=== PATIENT | female | born 1995 | race Caucasian/White ===

== ENCOUNTER 2020-12-28 12:26 | Inpatient (IN) | payer BC ==
[2020-12-28 13:44] LABS: Creatinine,Urine Random 21.2 mg/dL; Protein/Creatinine Ratio,Urine 0.943
[2020-12-28 13:45] LABS: Amorphous Sediment,Urine Rare /hpf; Appearance,Urine Clear (Clear); Bilirubin,Urine Negative (Negative); Blood,Urine Negative (Negative); Color,Urine Light Yellow; Glucose,Urine (UA) Negative (Negative); Ketones,Urine Negative (Negative); Leukocyte Esterase,Urine Moderate (Negative); Nitrite,Urine Negative (Negative); Protein,Urine Negative (Negative); Specific Gravity,Urine 1.003 (1.001-1.035); Squamous Epithelial Cell,Urine 3 /hpf (0-4); Urobilinogen,Urine <2.0 mg/dL (<2.0); WBC,Urine 2 /hpf (0-5)
[2020-12-28 13:57] LABS: Basophils % (A) 0 %; Eosinophils # (A) 0.2 k/uL (0-0.7); Eosinophils % (A) 2 %; HCT 34.5 % (34.0-46.0); HGB 12.1 gm/dL (11.4-16.0); Lymphocytes # (A) 2.3 k/uL (1.0-4.8); Lymphocytes % (A) 20 %; MCH 29.4 pg (25.0-35.0); Mean Platelet Volume 9.3; Monocytes # (A) 0.6 k/uL (0-1.0); Monocytes % (A) 5 %; Neutrophils # (A) 7.8 k/uL (1.3-7.7); Neutrophils % (A) 71 %; Platelet Count 290 k/uL (150-450); RBC 4.11 m/uL (3.80-5.40); RDW 13.5 % (11.5-15.5)
[2020-12-28] MEDS ORDERED: CARBOPROST TROMETHAMINE 250 MCG/ML 1 ML AMP IM PRN (14:20)
[2020-12-28] MEDS ORDERED: TERBUTALINE 1 MG/ML VIAL SQ PRN (14:20)
[2020-12-28] MEDS ORDERED: OXYTOCIN 10 UNIT/ML 1 ML VIAL IM PRN (14:20)
[2020-12-28] MEDS ORDERED: LIDOCAINE 0.5% (PF) 5 MG/ML (50 ML SDV) SQ PRN (14:20)
[2020-12-28] MEDS ORDERED: METHYLERGONOVINE 0.2 MG/ML 1 ML AMP IM PRN (14:20)
[2020-12-28] MEDS ORDERED: OXYTOCIN 30 UNITS/500 ML NS 30 UNIT in SALINE 1 500ML.BAG IV SCH ×2 (14:30→22:00)
[2020-12-28] MEDS ORDERED: LACTATED RINGERS 1,000 ML IV SCH (14:30)
[2020-12-28] MEDS ORDERED: BUTORPHANOL 1 MG/ML 1 ML VIAL IV PRN (14:36)
[2020-12-28 14:42] LABS: ALT 10 U/L (4-34); AST 20 U/L (14-36); African American GFR (CKD) >90 (>60 ml/min/1.73 sqM); Blood Urea Nitrogen 4 mg/dL (7-17); LDH 486 U/L (313-618); Non-African American GFR(CKD) >90 (>60 ml/min/1.73 sqM); Uric Acid 4.7 mg/dL (3.7-7.4)
[2020-12-28] MEDS ORDERED: diphenhydrAMINE 50 MG CAP PO PRN (21:50)
[2020-12-28] MEDS ORDERED: diphenhydrAMINE 25 MG CAP PO PRN (21:50)
[2020-12-28] MEDS ORDERED: ZOLPIDEM 5 MG TAB PO PRN (21:50)
[2020-12-28] MEDS ORDERED: LANOLIN CREAM 5 GM TUBE TOPICAL PRN (21:50)
[2020-12-28] MEDS ORDERED: BENZOCAINE/MENTHOL SPRAY 1 GM/SPRAY AEROSOL TOPICAL PRN (21:50)
[2020-12-28] MEDS ORDERED: ACETAMINOPHEN TAB 325 MG TAB PO PRN (21:50)
[2020-12-28] MEDS ORDERED: diphenhydrAMINE 50 MG/ML 1 ML VIAL IVP PRN ×2 (21:50)
[2020-12-28] MEDS ORDERED: SIMETHICONE 80 MG CHEWABLE PO PRN (21:50)
[2020-12-28] MEDS ORDERED: HYDROCORTISONE 2.5% RECTAL CREAM 30 GM TUBE RECTAL PRN (21:50)
--- NOTE | 2020-12-28 21:55 | P.HPOB ---
History of Present Illness H&P Date: 12/28/20 Chief Complaint: IUP at 40 and 1, elevated blood pressures, visual changes This is a 25-year-old at 40 and one sevenths weeks that presents to labor and delivery with complaints of visual changes. Initial blood pressure noted to be 140s over 90s. Patient states floaters in addition to some tunnel vision. Blood pressures remained 130s to 140s over 90s during triage stay. Patient has been receiving routine care with no complications. Prior vaginal deliv soheila without complication. Patient did not have any elevated blood pressures during her care. Patient notes good movement, occasional contractions denies vaginal bleeding or loss of fluid. Patient has a known blood type of B+, rubella immune, B surface antigen negative, HIV negative, RPR nonreactive, group beta strep cultures negative. Review of Systems Constitutional: Denies chills, Denies fatigue, Denies fever Ears, nose, mouth and throat: Reports as per HPI, Denies headache Cardiovascular: Reports leg edema Respiratory: Denies dyspnea Gastrointestinal: Denies nausea, Denies vomiting Genitourinary: Reports Past Medical History Past Medical History: No Reported History History of Any Multi-Drug Resistant Organisms: None Reported Past Surgical History: Adenoidectomy, Tonsillectomy Past Anesthesia/Blood Transfusion Reactions: No Reported Reaction Past Psychological History: No Psychological Hx Reported Smoking Status: Never smoker Past Alcohol Use History: None Reported - Past Family History Brother(s) Family Medical History: Asthma Medications and Allergies Home Medications Medication Instructions Recorded Confirmed Type Aspirin 81 mg PO DAILY 12/28/20 12/28/20 History Pnv No.95/Ferrous Fum/Folic AC 1 each PO DAILY 12/28/20 12/28/20 History [ Multivitamin Tablet] Allergies Allergy/AdvReac Type Severity Reaction Status Date / Time No Known Allergies Allergy Verified 12/28/20 12:32 Exam Osteopathic Statement: *. No significant issues noted on an osteopathic structural exam other than those noted in the History and Physical/Consult. Vital Signs Temp Pulse Pulse Resp BP BP Pulse Ox 12/28/20 13:31 97.1 F L 73 16 136/86 98 12/28/20 13:14 96.6 F L 83 16 141/94 98 Intake and Output 09/27/21 09/27/21 09/27/21 06:59 14:59 22:59 Other: # Voids 1 1 Weight 97.522 kg Targeted physical exam is performed in this date and reroller hand a well-nourished well-developed female in no acute distress, breathing is nonlabored, heart has regular rhythm, abdomen is gravid and appropriate for gestational age, on cervical exam she is 1-2/50/-2 station, amniotomy is performed and clear fluid was obtained. heart tones returned be category 1 and she is abbey irregularly. Results Result Diagrams: 12/28/20 13:30 12/28/20 13:57 Abnormal Lab Results - Last 24 Hours (Table) 12/28/20 12/28/20 12/28/20 Range/Units 13:18 13:30 13:57 WBC 11.0 H (3.8-10.6) k/uL Neutrophils # 7.8 H (1.3-7.7) k/uL BUN 4 L (7-17) mg/dL Creatinine 0.36 L (0.52-1.04) mg/dL Ur Leukocyte Esterase Moderate H (Negative) Amorphous Sediment Rare H (None) /hpf Assessment and Plan (1) Post-dates Current Visit: Yes Status: Acute Code(s): O48.0 - POST-TERM SNOMED Code(s): 92120715 (2) Gestational HTN Current Visit: Yes Status: Acute Code(s): O13.9 - GESTATIONAL HTN W/O SIGNIFICANT PROTEINURIA, UNSP TRIMESTER SNOMED Code(s): 27129837 Plan: 25-year-old at 40 and one sevenths weeks that presents to labor and delivery with visual changes. Noted elevated blood pressures in addition. Patient is admitted to labor and delivery for induction of labor secondary to gestational hypertension. Patient is counseled on amniotomy, Pitocin augmentation of labor. Patient agrees plan of care. Patient declines options for analgesia.
--- NOTE | 2020-12-28 21:58 | P.PROBDLV ---
Vaginal Delivery Note - . Vaginal Delivery Note: 25-year-old at 40 and one sevenths weeks with presents to labor and delivery with complaints of visual changes. Noted elevated blood pressures 140s over 90s. Patient is admitted to labor and delivery and Pitocin induction of labor is begun. Amniotomy is performed and clear fluid was obtained. Patient progressed through labor eventually becoming uncomfortable and receiving 1 dose of Stadol through the labor process. Patient quickly progressed from 6 to com plete began pushing and had a normal spontaneous vaginal delivery of viable female infant at 2133, weight of 7 lbs. 15 oz., Apgars of 9 and 9 at one and 5 minutes respectively. After two-minute delayed the umbilical cord was doubly clamped and cut and the was handed to the maternal abdomen. The uterus was noted be firm and below the umbilicus. The placenta was delivered spontaneously intact with three-vessel cord being noted. On section the placenta revealed intact cotyledons. Inspection the patient's vaginal vault 2 small first-degree vaginal lacerations were appreciated. These were instilled with lidocaine for anesthesia, repaired with 2 [id number] sutures of 0 Vicryl. Estimated blood loss 150 mL Patient and infant tolerated delivery well and are resting comfortably. All counts were noted to be correct 2.
[2020-12-28] MEDS: IBUPROFEN 600 MG TAB PO PRN (22:37)
[2020-12-29] MEDS: IBUPROFEN 600 MG TAB PO PRN ×3 (05:37→19:09)
[2020-12-29] MEDS: SENNOSIDES-DOCUSATE SODIUM 1 EACH TAB PO SCH ×2 (08:30→21:09)
[2020-12-29] MEDS ORDERED: PRENATAL VIT-IRON-FOLIC ACID 1 EACH CAP PO SCH (09:00)
--- NOTE | 2020-12-29 09:25 | P.PNOBGVD ---
Subjective - Subjective Principal diagnosis: PPD 1 Interval history: Pt is doing well . she states lochia is moderate to heavy. she is she states pain is well controlled. baby is doing well Patient reports: Reports appetite normal, Reports voiding normally, Reports pain well controlled, Reports ambulating normally [place]: doing well, nursing well Objective - Latest Vital Signs Latest vital signs: Vital Signs Temp Pulse Pulse Resp BP BP Pulse Ox 12/29/20 08:00 98.2 F 93 16 124/88 12/29/20 04:00 97.4 F L 94 16 129/78 12/29/20 00:00 96 16 139/83 12/28/20 23:50 86 16 137/80 12/28/20 23:20 86 16 141/80 12/28/20 22:50 85 16 145/84 12/28/20 22:35 86 16 144/86 12/28/20 22:20 84 18 136/75 12/28/20 22:05 80 18 147/77 12/28/20 21:50 97.6 F 93 18 136/93 12/28/20 13:31 97.1 F L 73 16 136/86 98 12/28/20 13:14 96.6 F L 83 16 141/94 98 Intake and Output 12/28/20 12/29/20 12/29/20 22:59 06:59 14:59 Intake Total 287 Balance 287 Intake: Intake, IV Titration 167 Amount Oxytocin 30 Units/500 ml 167 Ns 30 unit In Saline 1 500ml.bag @ Per Protocol IV .Q0M [facility] Rx#:[id number] Oral 120 Other: # Voids 1 1 - Exam Extremities: Present: normal, edema Abdomen: Present: normal appearance, soft Uterus: Present: normal, firm - Labs Labs: Abnormal Lab Results - Last 24 Hours (Table) 12/28/20 12/28/20 12/28/20 Range/Units 13:18 13:30 13:57 WBC 11.0 H (3.8-10.6) k/uL Neutrophils # 7.8 H (1.3-7.7) k/uL BUN 4 L (7-17) mg/dL Creatinine 0.36 L (0.52-1.04) mg/dL Ur Leukocyte Esterase Moderate H (Negative) Amorphous Sediment Rare H (None) /hpf Assessment and Plan (1) Post-dates Current Visit: Yes Status: Acute Code(s): O48.0 - POST-TERM SNOMED Code(s): 52932984 (2) Gestational HTN Current Visit: Yes Status: Acute Code(s): O13.9 - GESTATIONAL HTN W/O SIGNIFICANT PROTEINURIA, UNSP TRIMESTER SNOMED Code(s): 80615391 (3) Status post vaginal delivery Current Visit: Yes Status: Acute Code(s): EMX1695 - SNOMED Code(s): 002136375 (4) Obstetric vaginal laceration with first degree perineal laceration Current Visit: Yes Status: Acute Code(s): O70.0 - FIRST DEGREE PERINEAL LACERATION DURING DELIVERY SNOMED Code(s): 257541712 Plan: Patient is doing well . continue routine care, Consider discharge home tonight.
--- NOTE | 2020-12-29 19:32 | P.DS ---
Providers Date of admission: 12/28/20 13:25 Expected date of discharge: 12/29/20 Attending physician: Isa Gomez Primary care physician: Stated None - Discharge Diagnosis(es) (1) Post-dates Current Visit: Yes Status: Acute (2) Gestational HTN Current Visit: Yes Status: Acute (3) Status post vaginal delivery Current Visit: Yes Status: Acute (4) Obstetric vaginal laceration with first degree perineal laceration Current Visit: Yes Status: Acute Hospital Course: 25-year-old G2 now P2 presented to labor and delivery on 12/28 with complaints of visual changes. Patient was noted have elevated blood pressures. Patient was admitted to labor and delivery with a diagnosis of gestational hypertension and induction of labor was begun. Pitocin induction was begun per hospital protocol. Amniotomy is performed and clear fluid was obtained. Patient progressed in labor eventually receiving 1 dose of Stadol for analgesia. Patient progressed quickly from 6 to complete began pushing and had a normal spontaneous vaginal delivery of a viable female at 2133, weight of 7 lbs. 15 oz. and Apgars of 9 and 9 at one and 5 minutes respect doubly. Patient did sustain a first 3 vaginal laceration that were repaired in the usual fashion. Patient's course has been uneventful. On this day #1 she is involuting and voiding without difficulty. She is tolerating a regular diet without nausea or vomiting. She is breast-feeding without difficulty. She would like discharge home at 24 hours. Patient Condition at Discharge: Good Plan - Discharge Summary New Discharge Prescriptions: No Action Aspirin 81 mg PO DAILY Pnv No.95/Ferrous Fum/Folic AC [ Multivitamin Tablet] 1 each PO DAILY Discharge Medication List Aspirin 81 mg PO DAILY 12/28/20 [History] Pnv No.95/Ferrous Fum/Folic AC [ Multivitamin Tablet] 1 each PO DAILY 12/28/20 [History] Follow up Appointment(s)/Referral(s): Isa Gomez DO [Doctor of Osteopathic Medicine] - 1 Week Patient Instructions/Handouts: Vaginal Delivery (DC), Vaginal Delivery (GEN) Activity/Diet/Wound Care/Special Instructions: Patient is to monitor blood pressures at home, follow-up 1 week for blood pressure check in the office. Discharge Disposition: HOME SELF-CARE
[2020-12-29 20:31] VITALS: BP 147/86; PULSE 95; RESP 17; TEMP 97.9
== END 2020-12-29 22:15 | disposition home or self-care (01) | DRG 807 ==
LOC: FBPOP 12:26 → 4FBP 13:25
PROVIDERS: ADMIT Obstetrics & Gynecology Obstetrics; ATTEND Obstetrics & Gynecology Obstetrics
PROC: 10E0XZZ Delivery of Products of Conception, External Approach (ICD-10-PCS; principal; 2020-12-28)
PROC: 0HQ9XZZ Repair Perineum Skin, External Approach (ICD-10-PCS; 2020-12-28)
PROC: 10907ZC Drainage of Amniotic Fluid, Therapeutic from Products of Conception, Via Natural or Artificial Opening (ICD-10-PCS; 2020-12-28)
PROC: 3E033VJ Introduction of Other Hormone into Peripheral Vein, Percutaneous Approach (ICD-10-PCS; 2020-12-28)
DX: O13.4 Gestational [pregnancy-induced] hypertension without significant proteinuria, complicating childbirth (principal); Z37.0 Single live birth; O70.0 First degree perineal laceration during delivery; O48.0 Post-term pregnancy; Z3A.40 40 weeks gestation of pregnancy; Z79.82 Long term (current) use of aspirin
CPT/HCPCS: 59025; 81001; 82565; 82570; 83615; 84156; 84450; 84460; 84520; 84550; 85025; 86850; 86900; 86901; 99213

== ENCOUNTER 2021-01-02 19:47 | Emergency (ER) | payer BC ==
[2021-01-02] MEDS ORDERED: LABETALOL SYRINGE 5 MG/ML IVP STA (21:11)
[2021-01-02 21:58] LABS: Basophils % (A) 0 %; Eosinophils # (A) 0.5 k/uL (0-0.7); Eosinophils % (A) 4 %; HCT 33.5 % (34.0-46.0); HGB 11.3 gm/dL (11.4-16.0); Lymphocytes # (A) 2.6 k/uL (1.0-4.8); Lymphocytes % (A) 22 %; MCH 29.5 pg (25.0-35.0); MCHC 33.8 g/dL (31.0-37.0); MCV 87.3 fL (80.0-100.0); Mean Platelet Volume 7.7; Monocytes # (A) 0.6 k/uL (0-1.0); Monocytes % (A) 5 %; Neutrophils % (A) 68 %; Platelet Count 358 k/uL (150-450); RBC 3.83 m/uL (3.80-5.40); RDW 13.1 % (11.5-15.5); WBC 11.8 k/uL (3.8-10.6)
[2021-01-02] MEDS ORDERED: LABETALOL SYRINGE 5 MG/ML IVP ONE (22:00)
--- NOTE | 2021-01-02 22:09 | XR ---
EXAMINATION TYPE: XR chest 2V DATE OF EXAM: 01/02/2021 COMPARISON: NONE HISTORY: Hypertension TECHNIQUE: 2 views FINDINGS: Heart and mediastinum are normal. Lungs are clear. Diaphragm is normal. Bony thorax appears normal. IMPRESSION: Normal chest.
[2021-01-02 22:11] LABS: ALT 13 U/L (4-34); AST 24 U/L (14-36); African American GFR (CKD) >90 (>60 ml/min/1.73 sqM); Albumin 3.4 g/dL (3.5-5.0); Alkaline Phosphatase 103 U/L (38-126); Anion Gap 8 mmol/L; Blood Urea Nitrogen 10 mg/dL (7-17); Calcium 9.1 mg/dL (8.4-10.2); Carbon Dioxide 22 mmol/L (22-30); Chloride 107 mmol/L (98-107); Glucose 83 mg/dL (74-99); LDH 660 U/L (313-618); Magnesium 1.8 mg/dL (1.6-2.3); Non-African American GFR(CKD) >90 (>60 ml/min/1.73 sqM); Sodium 137 mmol/L (137-145); Total Bilirubin 0.4 mg/dL (0.2-1.3); Total Protein 6.3 g/dL (6.3-8.2); Uric Acid 5.5 mg/dL (3.7-7.4)
[2021-01-02 22:33] VITALS: RESP 18
[2021-01-02 22:39] LABS: Appearance,Urine Clear (Clear); Bacteria,Urine Rare /hpf; Bilirubin,Urine Negative (Negative); Blood,Urine Moderate (Negative); Color,Urine Light Yellow; Glucose,Urine (UA) Negative (Negative); Ketones,Urine Negative (Negative); Leukocyte Esterase,Urine Large (Negative); Nitrite,Urine Negative (Negative); Protein,Urine Negative (Negative); RBC,Urine 1 /hpf (0-5); Specific Gravity,Urine 1.005 (1.001-1.035); Squamous Epithelial Cell,Urine 3 /hpf (0-4); Urobilinogen,Urine <2.0 mg/dL (<2.0); WBC,Urine 30 /hpf (0-5)
--- NOTE | 2021-01-02 23:44 | ED ---
Recheck HPI - General Chief Complaint: Recheck/Abnormal Lab/Rx Stated Complaint: elevated bp with blurry vision Time Seen by Provider: 01/02/21 20:37 Source: EMS Mode of arrival: ambulatory Limitations: no limitations - History of Present Illness Initial Comments: 25 year-old female patient presents to the emergency department for evaluation of elevated blood pressure. Patient is 5 days post after vaginal delivery. She was induced due to gestational hypertension. Patient was discharged to monitor blood pressures and has appointment on Monday. Patient states today she developed blurred vision. States she monitored her BP and it was elevated to 160s/116. She was instructed to come in for evaluation. Patient states she has mild frontal headache, has been crying. Denies any nausea or vomiting. States she has had some palpitations but has had them for a few months. She denies any numbness, tingling, dizziness, or weakness to the extremities. Denies any swelling to the legs. Denies shortness of breath. She denies ever having taken anything for high blood pressure. Denies any current medications. She is breast-feeding. . Patient denies any recent rash, cough, abdominal pain, diarrhea, constipation, back pain, hematuria, dysuria, urinary urgency, urinary frequency, or any other complaints. - Related Data Home Medications Medication Instructions Recorded Confirmed Aspirin 81 mg PO DAILY 12/28/20 01/02/21 Pnv No.95/Ferrous Fum/Folic AC 1 tab PO DAILY 12/28/20 01/02/21 [ Multivitamin Tablet] Previous Rx's Medication Instructions Recorded NIFEdipine XL [Procardia XL] 60 mg PO DAILY #5 tab 01/03/21 Allergies Allergy/AdvReac Type Severity Reaction Status Date / Time No Known Allergies Allergy Verified 01/02/21 21:24 Review of Systems ROS Statement: Those systems with pertinent positive or pertinent negative responses have been documented in the HPI. ROS Other: All systems not noted in ROS Statement are negative. Past Medical History Past Medical History: No Reported History History of Any Multi-Drug Resistant Organisms: None Reported Past Surgical History: Adenoidectomy, Tonsillectomy Past Anesthesia/Blood Transfusion Reactions: No Reported Reaction Past Psychological History: Depression Smoking Status: Never smoker Past Alcohol Use History: Rare Past Drug Use History: None Reported - Past Family History Brother(s) Family Medical History: Asthma General Exam Limitations: no limitations General appearance: alert, in no apparent distress, other (This is a well- developed, well-nourished adult female patient in no acute distress. Vital signs upon presentation temperature 99.8F, pulse 82, respirations 16, blood pressure 157/107, pulse ox 97% on room air.) Eye exam: Present: normal appearance, PERRL, EOMI. Absent: scleral icterus, conjunctival injection, periorbital swelling ENT exam: Present: normal exam, normal oropharynx, mucous membranes moist Respiratory exam: Present: normal lung sounds bilaterally. Absent: respiratory distress, wheezes, rales, rhonchi, stridor Cardiovascular Exam: Present: regular rate, normal rhythm, normal heart sounds. Absent: systolic murmur, diastolic murmur, rubs, gallop, clicks GI/Abdominal exam: Present: soft, normal bowel sounds. Absent: distended, tenderness, guarding, rebound, rigid Extremities exam: Present: normal inspection, full ROM, normal capillary refill, other (Pedal and posttibial pulses are 2+. No lower show any swelling.). Absent: tenderness, pedal edema, joint swelling, calf tenderness Neurological exam: Present: alert, oriented X3, CN II-XII intact Psychiatric exam: Present: normal affect, normal mood Skin exam: Present: warm, dry, intact, normal color. Absent: rash Course Vital Signs 01/02/21 01/02/21 01/02/21 20:11 21:39 22:32 Temperature 99.8 F H Pulse Rate 82 84 80 Respiratory 16 18 Rate Blood Pressure 157/107 147/109 153/103 O2 Sat by Pulse 97 97 97 Oximetry 01/02/21 23:33 Temperature Pulse Rate 98 Respiratory 18 Rate Blood Pressure 150/100 O2 Sat by Pulse 98 Oximetry Medical Decision Making - Medical Decision Making [age] female patient presents to the emergency department today for evaluation of elevated blood pressure and blurred vision. She is 5 days . Did have gestational hypertension. Plan any medication. Physical examination is unremarkable. She is neurologically intact with no focal deficits. Labs reviewed and did reveal mildly elevated LDH. No protein any urine she has no lower extremity swelling. Platelet count is normal. Liver function tests are normal. I did discuss the case with Dr. Lee she believes this is just uncontrolled gestational hypertension. She did recommend giving a dose of Procardia here in the department. Patient was quite anxious about being admitted to the hospital. Blood pressures did come down to 147/96. She will be discharged to follow-up with Dr. Gomez on Monday, she does have an appointment. She is given prescription for Procardia to take the. Return parameters are discussed in detail. She verbalizes understanding and agrees with this plan. Case discussed with my attending Dr. Daniel. - Lab Data Result diagrams: 01/02/21 21:39 01/02/21 21:39 Lab Results 01/02/21 01/02/21 01/02/21 Range/Units 21:30 21:39 21:39 WBC 11.8 H (3.8-10.6) k/uL RBC 3.83 (3.80-5.40) m/uL Hgb 11.3 L (11.4-16.0) gm/dL Hct 33.5 L (34.0-46.0) % MCV 87.3 (80.0-100.0) fL MCH 29.5 (25.0-35.0) pg MCHC 33.8 (31.0-37.0) g/dL RDW 13.1 (11.5-15.5) % Plt Count 358 (150-450) k/uL MPV 7.7 Neutrophils % 68 % Lymphocytes % 22 % Monocytes % 5 % Eosinophils % 4 % Basophils % 0 % Neutrophils # 8.0 H (1.3-7.7) k/uL Lymphocytes # 2.6 (1.0-4.8) k/uL Monocytes # 0.6 (0-1.0) k/uL Eosinophils # 0.5 (0-0.7) k/uL Basophils # 0.0 (0-0.2) k/uL Sodium 137 (137-145) mmol/L Potassium 4.0 (3.5-5.1) mmol/L Chloride 107 (98-107) mmol/L Carbon Dioxide 22 (22-30) mmol/L Anion Gap 8 mmol/L BUN 10 (7-17) mg/dL Creatinine 0.47 L (0.52-1.04) mg/dL Est GFR (CKD-EPI)AfAm >90 (>60 ml/min/1.73 sqM) Est GFR (CKD-EPI)NonAf >90 (>60 ml/min/1.73 sqM) Glucose 83 (74-99) mg/dL Uric Acid 5.5 (3.7-7.4) mg/dL Calcium 9.1 (8.4-10.2) mg/dL Magnesium 1.8 (1.6-2.3) mg/dL Total Bilirubin 0.4 (0.2-1.3) mg/dL AST 24 (14-36) U/L ALT 13 (4-34) U/L Alkaline Phosphatase 103 (38-126) U/L Lactate Dehydrogenase 660 H (313-618) U/L Total Protein 6.3 (6.3-8.2) g/dL Albumin 3.4 L (3.5-5.0) g/dL Urine Color Light Yellow Urine Appearance Clear (Clear) Urine pH 7.0 (5.0-8.0) Ur Specific [place] 1.005 (1.001-1.035) Urine Protein Negative (Negative) Urine Glucose (UA) Negative (Negative) Urine Ketones Negative (Negative) Urine Blood Moderate H (Negative) Urine Nitrite Negative (Negative) Urine Bilirubin Negative (Negative) Urine Urobilinogen <2.0 (<2.0) mg/dL Ur Leukocyte Esterase Large H (Negative) Urine RBC 1 (0-5) /hpf Urine WBC 30 H (0-5) /hpf Ur Squamous Epith Cells 3 (0-4) /hpf Urine Bacteria Rare H (None) /hpf - EKG Data -: EKG Interpreted by [place] EKG Comments: EKG obtained at 2229 shows normal sinus rhythm with a ventricular rate is 78, VT interval 134, QRS duration 76, QT 364, QTC 414. No evidence of ST elevation or depression. - Radiology Data Radiology results: report reviewed, image reviewed Two-view x-ray of the chest is obtained. Report was reviewed in its entirety. Impression by Dr. Bass shows normal chest. Disposition Clinical Impression: Gestational hypertension Disposition: HOME SELF-CARE Condition: Good Instructions (If sedation given, give patient instructions): Hypertension During (ED) Additional Instructions: Take medication as directed. Monitor blood pressures. Return to the emergency department for any new, worsening, or concerning symptoms. Prescriptions: NIFEdipine XL [Procardia XL] 60 mg PO DAILY #5 tab Is patient prescribed a controlled substance at d/c from ED?: No Referrals: None,Stated [Primary Care Provider] - 1-2 days Time of Disposition: 00:58
[2021-01-03 01:22] VITALS: BP 149/97; PULSE 82
[2021-01-03 01:23] VITALS: TEMP 98.3
== END 2021-01-03 01:11 | disposition home or self-care (01) ==
LOC: EC 19:47
DX: O13.5 Gestational [pregnancy-induced] hypertension without significant proteinuria, complicating the puerperium (principal)
CPT/HCPCS: 36415; 71046; 80053; 81001; 83615; 83735; 84550; 85025; 87086; 93005; 96374; 99284

== ENCOUNTER 2021-01-03 12:20 | Inpatient (IN) | payer BC ==
[2021-01-03] MEDS ORDERED: SODIUM CHLORIDE 0.9% 1,000 ML IV ONE (13:31)
[2021-01-03] MEDS ORDERED: diphenhydrAMINE 50 MG/ML 1 ML VIAL IVP STA (13:31)
[2021-01-03] MEDS ORDERED: METOCLOPRAMIDE 5 MG/ML 2 ML VIAL IVP STA (13:31)
[2021-01-03] MEDS ORDERED: KETOROLAC 15 MG/ML 1 ML VIAL IVP STA (13:31)
--- NOTE | 2021-01-03 13:42 | ED ---
General Adult HPI - General Chief complaint: Recheck/Abnormal Lab/Rx Stated complaint: High BP, Headache-revisit Time Seen by Provider: 01/03/21 13:17 Source: patient Mode of arrival: ambulatory Limitations: no limitations - History of Present Illness Initial comments: 25 year-old female patient who is 6 days post presents for evaluation of headache and elevated blood pressure. She is . Patient was delivered due to gestational hypertension. She was evaluated last night, had labs performed, started on procardia xl. Patient states that she developed headache this morning that persisted despite tylenol at 0700. She states that she does have a wrist BP cuff and did have elevated blood pressure again today. She denies any blurred or double vision. Denies chest pain or shortness of breath. Denies numbness, tingling, weakness to the extremities. Denies any head injury. States she is eating and drinking well. She is breast-feeding. Denies any abdominal pain, abnormal vaginal discharge or bleeding. No foul discharge. Denies any h ematuria, dysuria, urinary frequency, urinary urgency. - Related Data Home Medications Medication Instructions Recorded Confirmed Aspirin 81 mg PO DAILY 12/28/20 01/03/21 Pnv No.95/Ferrous Fum/Folic AC 1 tab PO DAILY 12/28/20 01/03/21 [ Multivitamin Tablet] Previous Rx's Medication Instructions Recorded NIFEdipine XL [Procardia XL] 60 mg PO DAILY #5 tab 01/03/21 Allergies Allergy/AdvReac Type Severity Reaction Status Date / Time No Known Allergies Allergy Verified 01/03/21 17:58 Review of Systems ROS Statement: Those systems with pertinent positive or pertinent negative responses have been documented in the HPI. ROS Other: All systems not noted in ROS Statement are negative. Past Medical History Past Medical History: No Reported History History of Any Multi-Drug Resistant Organisms: None Reported Past Surgical History: Adenoidectomy, Tonsillectomy Past Anesthesia/Blood Transfusion Reactions: No Reported Reaction Past Psychological History: Depression Smoking Status: Never smoker Past Alcohol Use History: Rare Past Drug Use History: None Reported - Past Family History Brother(s) Family Medical History: Asthma General Exam Limitations: no limitations General appearance: alert, in no apparent distress, other (This is a well- developed, well-nourished adult female patient in no acute distress. Vital signs upon presentation are temperature 97.9F, pulse 110, respirations 19, blood pressure 132/91, pulse ox 97% on room air.) Eye exam: Present: normal appearance, PERRL, EOMI. Absent: scleral icterus, conjunctival injection, nystagmus, periorbital swelling ENT exam: Present: normal exam, normal oropharynx, mucous membranes moist Respiratory exam: Present: normal lung sounds bilaterally. Absent: respiratory distress, wheezes, rales, rhonchi, stridor Cardiovascular Exam: Present: regular rate, normal rhythm, normal heart sounds. Absent: systolic murmur, diastolic murmur, rubs, gallop, clicks GI/Abdominal exam: Present: soft, normal bowel sounds. Absent: distended, tenderness, guarding, rebound, rigid Neurological exam: Present: alert, oriented X3, CN II-XII intact, other (Strength in all 4 extremities is 5/5) Psychiatric exam: Present: normal affect, normal mood Skin exam: Present: warm, dry, intact, normal color. Absent: rash Course Vital Signs 01/03/21 01/03/21 01/03/21 12:36 14:35 15:00 Temperature 97.9 F 98 F Pulse Rate 110 H 112 H 100 Respiratory 19 20 20 Rate Blood Pressure 132/91 141/102 O2 Sat by Pulse 97 97 97 Oximetry 01/03/21 01/03/21 16:00 16:51 Temperature 98 F Pulse Rate 96 96 Respiratory 20 20 Rate Blood Pressure 139/98 139/98 O2 Sat by Pulse 97 97 Oximetry Medical Decision Making - Medical Decision Making 25-year-old female patient presents to the emergency department for evaluation of elevated blood pressure and headache. She is 6 days post-, . BP in the ED today were 140s/100. She was started on Procardia last night in ED. This morning had severe headache unresolved with Tylenol. Physical examination was unremarkable. Lab work up unremarkable. Case discussed with Dr. Lee who recommends admission and treatment for presumtive preeclampsia. I did discuss this plan with the patient. She is agreeable. Case discussed with my attending Dr. Liz. - Lab Data Result diagrams: 01/03/21 13:55 01/03/21 13:55 Lab Results 01/03/21 01/03/21 01/03/21 Range/Units 13:55 13:55 13:55 WBC 11.6 H (3.8-10.6) k/uL RBC 4.30 (3.80-5.40) m/uL Hgb 12.5 (11.4-16.0) gm/dL Hct 37.5 (34.0-46.0) % MCV 87.2 (80.0-100.0) fL MCH 29.1 (25.0-35.0) pg MCHC 33.3 (31.0-37.0) g/dL RDW 13.2 (11.5-15.5) % Plt Count 365 (150-450) k/uL MPV 7.1 Neutrophils % 71 % Lymphocytes % 20 % Monocytes % 5 % Eosinophils % 2 % Basophils % 1 % Neutrophils # 8.3 H (1.3-7.7) k/uL Lymphocytes # 2.3 (1.0-4.8) k/uL Monocytes # 0.6 (0-1.0) k/uL Eosinophils # 0.3 (0-0.7) k/uL Basophils # 0.1 (0-0.2) k/uL Sodium 137 (137-145) mmol/L Potassium 3.9 (3.5-5.1) mmol/L Chloride 108 H (98-107) mmol/L Carbon Dioxide 22 (22-30) mmol/L Anion Gap 7 mmol/L BUN 8 (7-17) mg/dL Creatinine 0.46 L (0.52-1.04) mg/dL Est GFR (CKD-EPI)AfAm >90 (>60 ml/min/1.73 sqM) Est GFR (CKD-EPI)NonAf >90 (>60 ml/min/1.73 sqM) Glucose 86 (74-99) mg/dL Uric Acid 5.0 (3.7-7.4) mg/dL Calcium 9.0 (8.4-10.2) mg/dL Magnesium 1.8 (1.6-2.3) mg/dL Total Bilirubin 0.3 (0.2-1.3) mg/dL AST 20 (14-36) U/L ALT 13 (4-34) U/L Alkaline Phosphatase 117 (38-126) U/L Lactate Dehydrogenase 634 H (313-618) U/L Total Protein 6.9 (6.3-8.2) g/dL Albumin 3.7 (3.5-5.0) g/dL Urine Color Light Yellow Urine Appearance Clear (Clear) Urine pH 7.0 (5.0-8.0) Ur Specific [place] 1.007 (1.001-1.035) Urine Protein Negative (Negative) Urine Glucose (UA) Negative (Negative) Urine Ketones Negative (Negative) Urine Blood Moderate H (Negative) Urine Nitrite Negative (Negative) Urine Bilirubin Negative (Negative) Urine Urobilinogen <2.0 (<2.0) mg/dL Ur Leukocyte Esterase Small H (Negative) Urine RBC <1 (0-5) /hpf Urine WBC 5 (0-5) /hpf Ur Squamous Epith Cells <1 (0-4) /hpf Urine Bacteria Few H (None) /hpf Disposition Clinical Impression: Hypertension, Headache Disposition: ADMITTED IP TO THIS [facility] Condition: Serious Decision to Admit Reason: Admit from EC Decision Date: 01/03/21 Decision Time: 14:54
[2021-01-03 14:11] LABS: Basophils # (A) 0.1 k/uL (0-0.2); Basophils % (A) 1 %; Eosinophils # (A) 0.3 k/uL (0-0.7); Eosinophils % (A) 2 %; HCT 37.5 % (34.0-46.0); HGB 12.5 gm/dL (11.4-16.0); Lymphocytes # (A) 2.3 k/uL (1.0-4.8); Lymphocytes % (A) 20 %; MCH 29.1 pg (25.0-35.0); MCHC 33.3 g/dL (31.0-37.0); MCV 87.2 fL (80.0-100.0); Mean Platelet Volume 7.1; Monocytes # (A) 0.6 k/uL (0-1.0); Monocytes % (A) 5 %; Neutrophils # (A) 8.3 k/uL (1.3-7.7); Neutrophils % (A) 71 %; Platelet Count 365 k/uL (150-450); RDW 13.2 % (11.5-15.5); WBC 11.6 k/uL (3.8-10.6)
[2021-01-03 14:22] LABS: Appearance,Urine Clear (Clear); Bacteria,Urine Few /hpf; Bilirubin,Urine Negative (Negative); Blood,Urine Moderate (Negative); Color,Urine Light Yellow; Glucose,Urine (UA) Negative (Negative); Ketones,Urine Negative (Negative); Leukocyte Esterase,Urine Small (Negative); Nitrite,Urine Negative (Negative); Protein,Urine Negative (Negative); RBC,Urine <1 /hpf (0-5); Specific Gravity,Urine 1.007 (1.001-1.035); Squamous Epithelial Cell,Urine <1 /hpf (0-4); Urobilinogen,Urine <2.0 mg/dL (<2.0); WBC,Urine 5 /hpf (0-5)
[2021-01-03 14:26] LABS: ALT 13 U/L (4-34); AST 20 U/L (14-36); African American GFR (CKD) >90 (>60 ml/min/1.73 sqM); Albumin 3.7 g/dL (3.5-5.0); Alkaline Phosphatase 117 U/L (38-126); Anion Gap 7 mmol/L; Blood Urea Nitrogen 8 mg/dL (7-17); Carbon Dioxide 22 mmol/L (22-30); Chloride 108 mmol/L (98-107); Glucose 86 mg/dL (74-99); LDH 634 U/L (313-618); Magnesium 1.8 mg/dL (1.6-2.3); Non-African American GFR(CKD) >90 (>60 ml/min/1.73 sqM); Potassium 3.9 mmol/L (3.5-5.1); Sodium 137 mmol/L (137-145); Total Bilirubin 0.3 mg/dL (0.2-1.3); Total Protein 6.9 g/dL (6.3-8.2)
[2021-01-03] MEDS ORDERED: NALOXONE 0.4 MG/ML 1 ML VIAL IV PRN (14:52)
[2021-01-03] MEDS ORDERED: LABETALOL 5 MG/ML VIAL MDV IVP PRN ×3 (17:48)
[2021-01-03] MEDS ORDERED: CALCIUM GLUCONATE 1 GM/10 ML VIAL IV PRN (17:48)
[2021-01-03] MEDS ORDERED: MAGNESIUM SULFATE-WATER PMX 4 GM in WATER FOR INJECTION 1 100ML.BAG IVPB ONE (17:48)
[2021-01-03] MEDS ORDERED: hydrALAZINE HCL 20 MG/ML 1 ML VIAL IVP PRN (17:48)
--- NOTE | 2021-01-03 17:48 | P.HPOB ---
History of Present Illness H&P Date: 01/03/21 Chief Complaint: headache This is a 25-year-old 2 now para 2 woman who had a normal spontaneous vaginal delivery on 12/28/2020. She was 40 weeks gestation and presented with complaints of blurred vision and was found to have elevated blood pressures. She is admitted and her labor was induced. She was diagnosed with gestational hypertension. She had a normal spontaneous vaginal delivery and was discharged home on day #1 without requiring any further treatment. The patient was checking her home blood pressures with a automatic wrist cuff. Yesterday her blood pressures began to increase and she went to the emergency room. Her blood pressures were elevated in the emergency room setting and she did respond well to both IV and oral antihypertensives. Her laboratory evaluation was negative for preeclampsia and she had no proteinuria. She was discharged home with plan for oral antihypertensives. She re-presented on the this morning again with complaints of severe headache and elevated blood pressures at home. Her blood pressures upon initial evaluation in the emergency room weren't in the 140s over 100. She was therefore admitted for presumptive preeclampsia. Of note her laboratory data was repeated and remains entirely normal. She reports headache that did not respond to oral Tylenol. She has some mild bl urry vision. She denies shortness of breath, chest pain, abdominal pain, heavy vaginal bleeding, swelling of the extremities. She is nursing. Review of Systems All systems: negative Past Medical History Past Medical History: No Reported History History of Any Multi-Drug Resistant Organisms: None Reported Past Surgical History: Adenoidectomy, Tonsillectomy Past Anesthesia/Blood Transfusion Reactions: No Reported Reaction Past Psychological History: Depression Smoking Status: Never smoker Past Alcohol Use History: Rare Past Drug Use History: None Reported - Past Family History Brother(s) Family Medical History: Asthma Medications and Allergies Home Medications Medication Instructions Recorded Confirmed Type Aspirin 81 mg PO DAILY 12/28/20 01/03/21 History Pnv No.95/Ferrous Fum/Folic AC 1 tab PO DAILY 12/28/20 01/03/21 History [ Multivitamin Tablet] NIFEdipine XL [Procardia XL] 60 mg PO DAILY #5 tab 01/03/21 01/03/21 Rx Allergies Allergy/AdvReac Type Severity Reaction Status Date / Time No Known Allergies Allergy Verified 01/03/21 14:53 Exam Vital Signs Temp Pulse Resp BP Pulse Ox 01/03/21 16:51 98 F 96 20 139/98 97 01/03/21 16:00 96 20 139/98 97 01/03/21 15:00 100 20 97 01/03/21 14:35 98 F 112 H 20 141/102 97 01/03/21 12:36 97.9 F 110 H 19 132/91 97 Intake and Output 01/03/21 01/03/21 01/03/21 06:59 14:59 22:59 Other: Weight 92.986 kg In general is a pleasant pale-appearing female in no acute distress. HEENT exam is unremarkable with no palpable lymphadenopathy. Her breathing is unlabored. Her lungs are clear to auscultation bilaterally with no wheezes. Her heart is a regular rate and rhythm. The abdomen is mildly distended but is soft and nontender. No right upper quadrant pain. No CVAT. Pelvic examination is deferred. She has no lower extremity edema. Deep tendon reflexes are 2+ with no clonus. Results Result Diagrams: 01/03/21 13:55 01/03/21 13:55 Abnormal Lab Results - Last 24 Hours (Table) 01/03/21 01/03/21 01/03/21 Range/Units 13:55 13:55 13:55 WBC 11.6 H (3.8-10.6) k/uL Neutrophils # 8.3 H (1.3-7.7) k/uL Chloride 108 H (98-107) mmol/L Creatinine 0.46 L (0.52-1.04) mg/dL Lactate Dehydrogenase 634 H (313-618) U/L Urine Blood Moderate H (Negative) Ur Leukocyte Esterase Small H (Negative) Urine Bacteria Few H (None) /hpf Assessment and Plan (1) Pre-eclampsia, Current Visit: Yes Status: Acute Code(s): O14.95 - UNSPECIFIED PRE-ECLAMPSIA, COMPLICATING THE PUERPERIUM SNOMED Code(s): 447848983 Plan: She will be admitted and magnesium sulfate seizure prophylaxis will be initiated per protocol. Antihypertensives per protocol as indicated. Thyroid believe this is simply ongoing gestational hypertension with the addition of the severe headache and return to the emergency room believe it is most prudent to treat her in this way. This is discussed in detail with the patient and her regarding agreement with the plan.
[2021-01-03] MEDS: MAGNESIUM SULFATE-WATER PMX 20 GM in WATER FOR INJECTION 1 500ML.BAG IV SCH (18:35)
[2021-01-03] MEDS ORDERED: ACETAMINOPHEN TAB 325 MG TAB PO PRN (19:48)
[2021-01-03] MEDS ORDERED: IBUPROFEN 400 MG TAB PO PRN (19:48)
[2021-01-04 01:06] VITALS: RESP 16
[2021-01-04] MEDS: MAGNESIUM SULFATE-WATER PMX 20 GM in WATER FOR INJECTION 1 500ML.BAG IV SCH ×2 (04:52→13:51)
[2021-01-04 06:24] LABS: Basophils % (A) 1 %; Eosinophils # (A) 0.3 k/uL (0-0.7); Eosinophils % (A) 3 %; HCT 35.4 % (34.0-46.0); HGB 11.5 gm/dL (11.4-16.0); Lymphocytes # (A) 2.7 k/uL (1.0-4.8); Lymphocytes % (A) 29 %; MCH 28.7 pg (25.0-35.0); MCHC 32.6 g/dL (31.0-37.0); MCV 88.1 fL (80.0-100.0); Monocytes # (A) 0.6 k/uL (0-1.0); Monocytes % (A) 6 %; Neutrophils # (A) 5.5 k/uL (1.3-7.7); Neutrophils % (A) 60 %; Platelet Count 372 k/uL (150-450); RBC 4.02 m/uL (3.80-5.40); RDW 13.1 % (11.5-15.5); WBC 9.2 k/uL (3.8-10.6)
[2021-01-04 06:42] LABS: ALT 11 U/L (4-34); AST 19 U/L (14-36); African American GFR (CKD) >90 (>60 ml/min/1.73 sqM); Blood Urea Nitrogen 5 mg/dL (7-17); LDH 547 U/L (313-618); Magnesium 4.9 mg/dL (1.6-2.3); Non-African American GFR(CKD) >90 (>60 ml/min/1.73 sqM)
[2021-01-04] MEDS ORDERED: LACTATED RINGERS 1,000 ML IV SCH (15:00)
[2021-01-05 08:12] VITALS: BP 133/88; PULSE 74; TEMP 98.1
--- NOTE | 2021-01-05 08:20 | P.DS ---
Providers Date of admission: 01/03/21 14:52 Expected date of discharge: 01/05/21 Attending physician: Jerica Lee Primary care physician: Stated None - Discharge Diagnosis(es) (1) Pre-eclampsia, Current Visit: Yes Status: Acute Hospital Course: 25-year-old 2 now para 2 status post normal spontaneous vaginal delivery on 12/28. Patient at that time was noted to have elevated blood pressures and blurred vision. She was admitted to labor and delivery and induction of labor was preformed secondary to gestational hypertension. Patient was discharged home on day #1 as blood pressures continued to be normal for 24 hours after delivery. Patient presented to the hospital on Monday 01/01 with complaints of elevated blood pressures, negative workup in the [facility] department, patient was discharged home with labetalol prescription. Patient never filled the labetalol prescriptions and she breathes presented to the emergency department on Monday evening. Blood pressures noted to be 140/100. At that time patient complained of severe headache. Patient was admitted to labor and delivery for 24 hours of magnesium therapy. Patient had magnesium discontinued at 24 hours. Blood pressures were noted to be normal during treatment with magnesium. Patient has had normal blood pressures since magnesium was discontinued 130s over 80s on average. Patient denies headache. She is feeling well. She is ambulating and voiding without difficulty. She denies any concerns and wishes discharge home if possible. Patient Condition at Discharge: Good Plan - Discharge Summary New Discharge Prescriptions: No Action Aspirin 81 mg PO DAILY Pnv No.95/Ferrous Fum/Folic AC [ Multivitamin Tablet] 1 tab PO DAILY NIFEdipine XL [Procardia XL] 60 mg PO DAILY #5 tab Discharge Medication List Aspirin 81 mg PO DAILY 12/28/20 [History] Pnv No.95/Ferrous Fum/Folic AC [ Multivitamin Tablet] 1 tab PO DAILY 12/28/20 [History] NIFEdipine XL [Procardia XL] 60 mg PO DAILY #5 tab 01/03/21 [Rx] Follow up Appointment(s)/Referral(s): Isa Gomez DO [Doctor of Osteopathic Medicine] - 1 Week Activity/Diet/Wound Care/Special Instructions: Patient is counseled to monitor blood pressures at home. Elevated blood pressures consisting 160/100 she is to call the office. Preeclampsia precautions are reviewed. All questions are answered, she will make a follow-up appointment with myself in 1 week for routine blood pressure check. Discharge Disposition: HOME SELF-CARE
== END 2021-01-05 08:45 | disposition home or self-care (01) | DRG 776 ==
LOC: EC 12:20 → 4FBP 14:52
PROVIDERS: ADMIT Obstetrics & Gynecology; ATTEND Obstetrics & Gynecology
DX: O15.2 Eclampsia complicating the puerperium (principal); Z20.822 Contact with and (suspected) exposure to COVID-19; Z79.82 Long term (current) use of aspirin; Z79.899 Other long term (current) drug therapy; Z86.59 Personal history of other mental and behavioral disorders; Z90.89 Acquired absence of other organs; Z98.890 Other specified postprocedural states; Z82.5 Family history of asthma and other chronic lower respiratory diseases
CPT/HCPCS: 36415; 80053; 81001; 82565; 83615; 83735; 84450; 84460; 84520; 84550; 85025; 87635; 96361; 96374; 96375; 99284

== ENCOUNTER 2021-06-07 19:25 | Emergency (ER) | payer BC ==
[2021-06-07 22:29] VITALS: RESP 18
[2021-06-07] MEDS ORDERED: SODIUM CHLORIDE 0.9% 1,000 ML IV STA (23:14)
[2021-06-07] MEDS ORDERED: KETOROLAC 15 MG/ML 1 ML VIAL IVP STA (23:14)
[2021-06-07] MEDS ORDERED: ONDANSETRON 4 MG/2 ML VIAL IVP STA (23:14)
[2021-06-07] MEDS ORDERED: ACETAMINOPHEN TAB 500 MG TAB PO STA (23:14)
--- NOTE | 2021-06-07 23:16 | ED ---
Fever HPI - General Chief Complaint: Nausea/Vomiting/Diarrhea Stated Complaint: Vomiting, SOB, Pulse High Time Seen by Provider: 06/07/21 22:50 Source: patient, RN notes reviewed, old records reviewed Mode of arrival: ambulatory Limitations: no limitations - History of Present Illness Initial Comments: This is a 26-year-old female to the emergency department for evaluation. Patient states she's not feeling well. Heart rate is been extraordinarily high at home for water was alert and high heart rate. Feels WEAK and fatigued palpitations lightheadedness dizziness and nausea vomiting. Patient states her and her boyfriend did have coronavirus last month. This was confirmed with a positive test. Patient is no nausea vomiting no diarrhea no abdominal pain no current cough. No sore throat runny nose or ear pain. No rashes. MD Complaint: fever, malaise, weakness, other (Patient was unsure that she had a fever prior to arrival) -: hour(s) Context: sick contacts (Recent covert exposure and patient had coronavirus last month) Associated Symptoms: denies other symptoms, chills, rigors, myalgias Treatments Prior to Arrival: none - Related Data Home Medications Medication Instructions Recorded Confirmed Aspirin 81 mg PO DAILY 12/28/20 01/03/21 Pnv No.95/Ferrous Fum/Folic AC 1 tab PO DAILY 12/28/20 01/03/21 [ Multivitamin Tablet] Previous Rx's Medication Instructions Recorded NIFEdipine XL [Procardia XL] 60 mg PO DAILY #5 tab 01/03/21 Allergies Allergy/AdvReac Type Severity Reaction Status Date / Time No Known Allergies Allergy Verified 06/07/21 22:31 Review of Systems ROS Statement: Those systems with pertinent positive or pertinent negative responses have been documented in the HPI. ROS Other: All systems not noted in ROS Statement are negative. Past Medical History Past Medical History: No Reported History History of Any Multi-Drug Resistant Organisms: None Reported Past Surgical History: Adenoidectomy, Tonsillectomy Past Anesthesia/Blood Transfusion Reactions: No Reported Reaction Past Psychological History: Depression Smoking Status: Never smoker Past Alcohol Use History: Rare Past Drug Use History: None Reported - Past Family History Brother(s) Family Medical History: Asthma General Exam Limitations: no limitations General appearance: alert, in no apparent distress Head exam: Present: atraumatic, normocephalic, normal inspection Eye exam: Present: normal appearance, PERRL, EOMI. Absent: scleral icterus, conjunctival injection, periorbital swelling ENT exam: Present: normal exam, mucous membranes moist Neck exam: Present: normal inspection. Absent: tenderness, meningismus, lymphadenopathy Respiratory exam: Present: normal lung sounds bilaterally. Absent: respiratory distress, wheezes, rales, rhonchi, stridor Cardiovascular Exam: Present: normal rhythm, tachycardia, normal heart sounds. Absent: systolic murmur, diastolic murmur, rubs, gallop, clicks GI/Abdominal exam: Present: soft, normal bowel sounds. Absent: distended, tenderness, guarding, rebound, rigid Extremities exam: Present: normal inspection, full ROM, normal capillary refill. Absent: tenderness, pedal edema, joint swelling, calf tenderness Back exam: Present: normal inspection Neurological exam: Present: alert, oriented X3, CN II-XII intact Psychiatric exam: Present: normal affect, normal mood Skin exam: Present: warm, dry, intact, normal color. Absent: rash Course Vital Signs 06/07/21 22:24 Temperature 101.1 F H Pulse Rate 138 H Respiratory 18 Rate Blood Pressure 104/66 O2 Sat by Pulse 97 Oximetry - Reevaluation(s) Reevaluation #1: 06/08/21 00:06 Medical records reviewed Reevaluation #2: 06/08/21 01:28 Patient feels significantly improved, prefers discharge at this time Medical Decision Making - Medical Decision Making 26 female here with urinary tract infection and elevated heart rate. Heart rate and temperature are improved. Patient placed on antibiotics and can be discha rged home - Lab Data Result diagrams: 06/07/21 23:40 06/07/21 23:40 Lab Results 06/07/21 06/07/21 06/07/21 Range/Units 23:40 23:40 23:40 WBC 15.7 H (3.8-10.6) k/uL RBC 5.27 (3.80-5.40) m/uL Hgb 15.1 (11.4-16.0) gm/dL Hct 44.5 (34.0-46.0) % MCV 84.5 (80.0-100.0) fL MCH 28.7 (25.0-35.0) pg MCHC 34.0 (31.0-37.0) g/dL RDW 12.9 (11.5-15.5) % Plt Count 357 (150-450) k/uL MPV 6.9 Neutrophils % 92 % Lymphocytes % 3 % Monocytes % 3 % Eosinophils % 1 % Basophils % 0 % Neutrophils # 14.5 H (1.3-7.7) k/uL Lymphocytes # 0.5 L (1.0-4.8) k/uL Monocytes # 0.4 (0-1.0) k/uL Eosinophils # 0.2 (0-0.7) k/uL Basophils # 0.1 (0-0.2) k/uL Sodium 135 L (137-145) mmol/L Potassium 4.0 (3.5-5.1) mmol/L Chloride 100 (98-107) mmol/L Carbon Dioxide 24 (22-30) mmol/L Anion Gap 11 mmol/L BUN 19 H (7-17) mg/dL Creatinine 0.63 (0.52-1.04) mg/dL Est GFR (CKD-EPI)AfAm >90 (>60 ml/min/1.73 sqM) Est GFR (CKD-EPI)NonAf >90 (>60 ml/min/1.73 sqM) Glucose 114 H (74-99) mg/dL Calcium 8.4 (8.4-10.2) mg/dL Total Bilirubin 0.7 (0.2-1.3) mg/dL AST 22 (14-36) U/L ALT 21 (4-34) U/L Alkaline Phosphatase 94 (38-126) U/L Total Protein 8.1 (6.3-8.2) g/dL Albumin 4.7 (3.5-5.0) g/dL Amylase 68 (30-110) U/L Lipase 104 (23-300) U/L Urine Color Yellow Urine Appearance Clear (Clear) Urine pH 6.0 (5.0-8.0) Ur Specific [place] 1.031 (1.001-1.035) Urine Protein 1+ H (Negative) Urine Glucose (UA) Negative (Negative) Urine Ketones 1+ H (Negative) Urine Blood Moderate H (Negative) Urine Nitrite Negative (Negative) Urine Bilirubin Negative (Negative) Urine Urobilinogen <2.0 (<2.0) mg/dL Ur Leukocyte Esterase Small H (Negative) Urine RBC 7 H (0-5) /hpf Urine WBC 25 H (0-5) /hpf Urine WBC Clumps Rare H (None) /hpf Ur Squamous Epith Cells 4 (0-4) /hpf Urine Bacteria Rare H (None) /hpf Hyaline Casts 1 (0-2) /lpf Urine Mucus Occasional H (None) /hpf Influenza Type A (PCR) (Not Detectd) Influenza Type B (PCR) (Not Detectd) RSV (PCR) (Not Detectd) SARS-CoV-2 (PCR) (Not Detectd) 06/07/21 Range/Units 23:40 WBC (3.8-10.6) k/uL RBC (3.80-5.40) m/uL Hgb (11.4-16.0) gm/dL Hct (34.0-46.0) % MCV (80.0-100.0) fL MCH (25.0-35.0) pg MCHC (31.0-37.0) g/dL RDW (11.5-15.5) % Plt Count (150-450) k/uL MPV Neutrophils % % Lymphocytes % % Monocytes % % Eosinophils % % Basophils % % Neutrophils # (1.3-7.7) k/uL Lymphocytes # (1.0-4.8) k/uL Monocytes # (0-1.0) k/uL Eosinophils # (0-0.7) k/uL Basophils # (0-0.2) k/uL Sodium (137-145) mmol/L Potassium (3.5-5.1) mmol/L Chloride (98-107) mmol/L Carbon Dioxide (22-30) mmol/L Anion Gap mmol/L BUN (7-17) mg/dL Creatinine (0.52-1.04) mg/dL Est GFR (CKD-EPI)AfAm (>60 ml/min/1.73 sqM) Est GFR (CKD-EPI)NonAf (>60 ml/min/1.73 sqM) Glucose (74-99) mg/dL Calcium (8.4-10.2) mg/dL Total Bilirubin (0.2-1.3) mg/dL AST (14-36) U/L ALT (4-34) U/L Alkaline Phosphatase (38-126) U/L Total Protein (6.3-8.2) g/dL Albumin (3.5-5.0) g/dL Amylase (30-110) U/L Lipase (23-300) U/L Urine Color Urine Appearance (Clear) Urine pH (5.0-8.0) Ur Specific [place] (1.001-1.035) Urine Protein (Negative) Urine Glucose (UA) (Negative) Urine Ketones (Negative) Urine Blood (Negative) Urine Nitrite (Negative) Urine Bilirubin (Negative) Urine Urobilinogen (<2.0) mg/dL Ur Leukocyte Esterase (Negative) Urine RBC (0-5) /hpf Urine WBC (0-5) /hpf Urine WBC Clumps (None) /hpf Ur Squamous Epith Cells (0-4) /hpf Urine Bacteria (None) /hpf Hyaline Casts (0-2) /lpf Urine Mucus (None) /hpf Influenza Type A (PCR) Not Detected (Not Detectd) Influenza Type B (PCR) Not Detected (Not Detectd) RSV (PCR) Not Detected (Not Detectd) SARS-CoV-2 (PCR) Not Detected (Not Detectd) - Radiology Data Radiology results: report reviewed (Test x-rays negative for acute disease), image reviewed Disposition Clinical Impression: Fever, UTI (urinary tract infection) Disposition: HOME SELF-CARE Condition: Good Instructions (If sedation given, give patient instructions): Fever in Adults (ED) Is patient prescribed a controlled substance at d/c from ED?: No Referrals: None,Stated [Primary Care Provider] - 1-2 days
--- NOTE | 2021-06-07 23:38 | XR ---
EXAMINATION TYPE: XR chest 1V portable DATE OF EXAM: 06/07/2021 COMPARISON: January 02, 2021 HISTORY: Abdominal pain TECHNIQUE: Single view FINDINGS: Heart and mediastinum are normal. Lungs are clear. Diaphragm is normal. Bony thorax appears normal. IMPRESSION: Normal chest. No change.
[2021-06-07 23:50] LABS: Basophils # (A) 0.1 k/uL (0-0.2); Basophils % (A) 0 %; Eosinophils # (A) 0.2 k/uL (0-0.7); Eosinophils % (A) 1 %; HCT 44.5 % (34.0-46.0); HGB 15.1 gm/dL (11.4-16.0); Lymphocytes # (A) 0.5 k/uL (1.0-4.8); Lymphocytes % (A) 3 %; MCH 28.7 pg (25.0-35.0); MCV 84.5 fL (80.0-100.0); Mean Platelet Volume 6.9; Monocytes # (A) 0.4 k/uL (0-1.0); Monocytes % (A) 3 %; Neutrophils # (A) 14.5 k/uL (1.3-7.7); Neutrophils % (A) 92 %; Platelet Count 357 k/uL (150-450); RBC 5.27 m/uL (3.80-5.40); RDW 12.9 % (11.5-15.5); WBC 15.7 k/uL (3.8-10.6)
[2021-06-08 00:07] LABS: ALT 21 U/L (4-34); AST 22 U/L (14-36); African American GFR (CKD) >90 (>60 ml/min/1.73 sqM); Albumin 4.7 g/dL (3.5-5.0); Alkaline Phosphatase 94 U/L (38-126); Amylase 68 U/L (30-110); Anion Gap 11 mmol/L; Blood Urea Nitrogen 19 mg/dL (7-17); Calcium 8.4 mg/dL (8.4-10.2); Carbon Dioxide 24 mmol/L (22-30); Chloride 100 mmol/L (98-107); Glucose 114 mg/dL (74-99); Lipase 104 U/L (23-300); Non-African American GFR(CKD) >90 (>60 ml/min/1.73 sqM); Sodium 135 mmol/L (137-145); Total Bilirubin 0.7 mg/dL (0.2-1.3); Total Protein 8.1 g/dL (6.3-8.2)
[2021-06-08 00:31] LABS: Influenza A Not Detected (Not Detectd); Influenza B Not Detected (Not Detectd)
[2021-06-08 00:41] LABS: Appearance,Urine Clear (Clear); Bacteria,Urine Rare /hpf; Bilirubin,Urine Negative (Negative); Blood,Urine Moderate (Negative); Color,Urine Yellow; Glucose,Urine (UA) Negative (Negative); Hyaline Casts,Urine 1 /lpf (0-2); Ketones,Urine 1+ (Negative); Leukocyte Esterase,Urine Small (Negative); Mucus,Urine Occasional /hpf; Nitrite,Urine Negative (Negative); Protein,Urine 1+ (Negative); RBC,Urine 7 /hpf (0-5); Specific Gravity,Urine 1.031 (1.001-1.035); Squamous Epithelial Cell,Urine 4 /hpf (0-4); Urobilinogen,Urine <2.0 mg/dL (<2.0); WBC,Urine 25 /hpf (0-5)
[2021-06-08] MEDS ORDERED: cefTRIAXone IN SWFI 1,000 MG/10 ML SYRINGE IVP STA ×2 (01:21→01:22)
[2021-06-08 01:32] VITALS: BP 106/71; PULSE 103; TEMP 98.2
== END 2021-06-08 01:42 | disposition home or self-care (01) ==
LOC: EC 19:25
DX: N39.0 Urinary tract infection, site not specified (principal); R06.02 Shortness of breath; Z20.822 Contact with and (suspected) exposure to COVID-19
CPT/HCPCS: 36415; 80053; 82150; 83690; 85025; 81001; 87086; 87077; 87186; 87636; 71045; 99285; 96374; 96375 ×2; 96361; J2405; J0696; J1885